=== PATIENT | male | born 1965 | race Two or more races ===

== ENCOUNTER 2024-02-07 15:14 | Emergency (ER) | payer OTHER ==
[~2024-02-07] VITALS: Ht 180.3 cm; Wt 90.7 kg
[2024-02-07 16:41] LABS: URINE APPEARANCE Clear; URINE BILIRRUBIN Negative (NEGATIVE); URINE BLOOD Negative; URINE COLOR Yellow; URINE GLUCOSE Negative (NEGATIVE); URINE LEUKOCYTE Negative; URINE NITRATE Negative; URINE PROTEIN Negative (NEGATIVE); URINE UROBILINOGEN 0.2 E.U./dl
[2024-02-07 16:45] LABS: URINE BACTERIA 8.8 uL (0.0-1933); URINE WBC 2.3 uL (0.0-23.2)
[2024-02-07] MEDS ORDERED: KETOROLAC TROMETHAMINE 30 MG VIAL IM STA (16:46)
[2024-02-07 16:50] LABS: URINE RBC 0.4 uL (0.0-20.8)
== END 2024-02-07 17:18 | disposition home or self-care (01) ==
LOC: ER 15:15
PROVIDERS: Emergency Medicine
DX: R31.9 Hematuria, unspecified (principal)

== ENCOUNTER 2024-12-24 11:22 | Emergency (ER) | payer OTHER ==
[~2024-12-24] VITALS: Ht 180.3 cm; Wt 89.4 kg
[2024-12-24] MEDS ORDERED: 0.9 % SODIUM CHLORIDE 1,000 ML IV SCH (11:45)
[2024-12-24] MEDS ORDERED: CEFTRIAXONE SODIUM 1,000 MG VIAL IV ONE (11:45)
[2024-12-24] MEDS ORDERED: CEFTRIAXONE SODIUM 1,000 MG VIAL ONE (12:03)
[2024-12-24 12:41] LABS: URINE APPEARANCE Clear; URINE BILIRRUBIN Negative (NEGATIVE); URINE BLOOD Negative; URINE COLOR Yellow; URINE GLUCOSE Negative (NEGATIVE); URINE KETONE Negative (NEGATIVE); URINE LEUKOCYTE Moderate; URINE NITRATE Negative; URINE PROTEIN Negative (NEGATIVE); URINE UROBILINOGEN 0.2 E.U./dl
[2024-12-24 12:46] LABS: URINE BACTERIA 3703.2 uL (0.0-1933); URINE WBC 293.4 uL (0.0-23.2)
[2024-12-24 12:51] LABS: HEMATOCRIT 42.6 % (39.0-48.0); HEMOGLOBIN 13.8 g/dL (13-16.00); MEAN CELL VOLUME 86.8 fL (80.0-100.00); MEAN CORPUSCULAR HEMOGLOBIN 28.1 pg (27.00-32.0); MEAN CORPUSCULAR HGB CONC 32.4 g/dl (32.0-36.0); PLATELET COUNT 219 K/uL (150-450); RED BLOOD COUNT 4.91 M/uL (4.00-6.00); RED CELL DISTRIBUTION WIDTH 14.2 % (11.5-14.5)
[2024-12-24 12:58] LABS: URINE EPITHELIAL CELLS 0.9 uL (0.0-38.8); URINE RBC 1.6 uL (0.0-20.8)
[2024-12-24 13:46] LABS: ALBUMIN 4.1 gm/dL (3.4-5.0); BILIRUBIN TOTAL 1.07 mg/dL (0.3-1.2); CALCIUM 9.5 mg/dL (8.5-10.1); CREATININE SERUM 1.07 mg/dL (0.70-1.30); GFR 71.23; GLOBULINA 3.3 G/DL (2.4-3.5); POTASSIUM 4.22 mEq/L (3.5-5.1); PROSTATIC SPECIFIC ANTIGEN 0.611 NG/ML (0.010-4.00); TOTAL PROTEIN 7.4 gm/dL (6.4-8.2)
[2024-12-24] MEDS ORDERED: TAMS0.4C PO (14:19)
[2024-12-24] MEDS ORDERED: CIPRO500 MG PO (14:19)
== END 2024-12-24 14:34 | disposition home or self-care (01) ==
LOC: EDBD 11:24 → ER 11:24
PROVIDERS: General Practice
DX: N39.0 Urinary tract infection, site not specified (principal); B95.1 Streptococcus, group B, as the cause of diseases classified elsewhere; N40.0 Benign prostatic hyperplasia without lower urinary tract symptoms; N28.1 Cyst of kidney, acquired; K42.9 Umbilical hernia without obstruction or gangrene

== ENCOUNTER 2025-02-10 10:10 | Emergency (ER) | payer OTHER ==
[~2025-02-10] VITALS: Ht 180.3 cm; Wt 86.2 kg
[~2025-02-10 10:10] MED LIST: CIPRO500 MG PO; TAMS0.4C PO
[2025-02-10 10:50] VITALS: BP 143/69; O2SAT 97
[2025-02-10] MEDS ORDERED: KETOROLAC TROMETHAMINE 15 MG VIAL IM STA (14:06)
[2025-02-10] MEDS ORDERED: KETOROLAC TROMETHAMINE 30 MG VIAL ONE (14:16)
[2025-02-10] MEDS ORDERED: CELEBREX200MG PO (15:42)
== END 2025-02-10 16:15 | disposition home or self-care (01) ==
LOC: ER 10:11
DX: R07.89 Other chest pain (principal); N40.1 Benign prostatic hyperplasia with lower urinary tract symptoms